=== PATIENT | female | born 1960 | race Asian ===

== ENCOUNTER 2019-03-05 23:26 | Emergency (ER) | payer SELFPAY ==
[~2019-03-05] VITALS: Ht 152.4 cm; Wt 78.7 kg
[2019-03-05 23:33] VITALS: Ht 152.4 cm; Wt 78.7 kg
--- NOTE | 2019-03-06 03:30 | ERD ---
ER Documentation Chief Complaint Chief Complaint HTN, nausea since 2100 HPI This is a 58-year-old female, who presents with essentially asymptomatic hypertension. Patient checked her blood pressure at 9:00 PM, and noted it to be high in the 200s, she only endorse some mild nausea at the time, with no headache, no chest pain or shortness of breath. Her primary concern was her high blood pressure. ROS All systems reviewed and are negative except as per history of present illness. Allergies Allergies: Coded Allergies: simvastatin (Verified Allergy, Unknown, "cannot breathe", 03/05/19) PMhx/Soc History of Surgery: Yes (C-sections) Anesthesia Reaction: No Hx Neurological Disorder: No Hx Respiratory Disorders: No Hx Cardiac Disorders: Yes (HTN) Hx Psychiatric Problems: No Hx Miscellaneous Medical Probl: Yes (DM, High cholesterol) Hx Alcohol Use: No Hx Substance Use: No Hx Tobacco Use: No Smoking Status: Never smoker Physical Exam Vitals Vital Signs Date Temp Pulse Resp B/P (MAP) Pulse Ox O2 O2 Flow FiO2 Time Delivery Rate 03/06/19 98.4 94 24 161/104 97 Room Air 02:03 (123) 03/06/19 98.4 84 20 147/86 100 Room Air 00:37 (106) 03/05/19 98.4 104 20 204/95 100 23:33 (131) Physical Exam Const: No acute distress Head: Atraumatic Eyes: Normal Conjunctiva ENT: Normal External Ears, Nose and Mouth. Neck: Full range of motion. No meningismus. Resp: Clear to auscultation bilaterally Cardio: Regular rate and rhythm, no murmurs Abd: Soft, non tender, non distended. Normal bowel sounds Skin: No petechiae or rashes Back: No midline or flank tenderness Ext: No cyanosis, or edema Neur: Awake and alert Psych: Normal Mood and Affect Result Diagram: 03/06/195 03/06/19 0125 Results 24 hrs Laboratory Tests Test 03/06/19 01:25 White Blood Count 7.7 10^3/ul Red Blood Count 4.74 10^6/ul Hemoglobin 14.0 g/dl Hematocrit 41.8 % Mean Corpuscular Volume 88.2 fl Mean Corpuscular Hemoglobin 29.5 pg Mean Corpuscular Hemoglobin Concent 33.5 g/dl Red Cell Distribution Width 13.2 % Platelet Count 305 10^3/UL Mean Platelet Volume 10.4 fl Immature Granulocytes % 0.400 % Neutrophils % 64.1 % Lymphocytes % 24.9 % Monocytes % 7.3 % Eosinophils % 2.1 % Basophils % 1.2 % Nucleated Red Blood Cells % 0.0 /100WBC Immature Granulocytes # 0.030 10^3/ul Neutrophils # 4.9 10^3/ul Lymphocytes # 1.9 10^3/ul Monocytes # 0.6 10^3/ul Eosinophils # 0.2 10^3/ul Basophils # 0.1 10^3/ul Nucleated Red Blood Cells # 0.0 10^3/ul Sodium Level 137 mmol/L Potassium Level 3.6 mmol/L Chloride Level 97 mmol/L Carbon Dioxide Level 26 mmol/L Anion Gap 14 Blood Urea Nitrogen 12 mg/dl Creatinine 0.57 mg/dl Est Glomerular Filtrat Rate mL/min > 60 mL/min Glucose Level 212 mg/dl Calcium Level 10.5 mg/dl Troponin I < 0.012 ng/ml Procedures/MDM EKG: Rate/Rhythm: Normal Sinus Rhythm QRS, ST, T-waves: No changes consistent w/ acute ischemia Impression: No evidence of ischemia or arrhythmia CBC: no e/o of systemic infection or severe anemia CMP: no e/o severe acidosis, renal failure, diabetic ketoacidosis, liver disease Lipase: no e/o pancreatitis Troponin: no e/o acute ischemia This 58-year-old female presents for evaluation of asymptomatic hypertension. Given her age and history of hypertension, a cardiac workup was ordered to evaluate for anginal equivalent, this was negative, she had no evidence of encephalopathy, and in the ED her blood pressure actually lowered without intervention. I discussed all findings with patient, who felt comfortable with discharge and of care, at discharge she was in no acute distress. Departure Diagnosis: Primary Impression: Hypertension Hypertension type: unspecified Qualified Codes: I10 - Essential (primary) hypertension Condition: Stable SABINA DRUMMOND MD Mar 06, 2019 03:27
[2019-03-06 04:15] VITALS: BP 137/91; PULSE 78; RESP 17
== END 2019-03-06 04:17 | disposition home or self-care (01) ==
LOC: E/R 23:26
DX: I10 Essential (primary) hypertension (principal); E11.9 Type 2 diabetes mellitus without complications
CPT/HCPCS: 80048; 84484; 85025